=== PATIENT | male | born 1995 | race Caucasian/White ===

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

== ENCOUNTER 2018-02-01 13:15 | Emergency (ER) | payer MEDICAID ==
[~2018-02-01] VITALS: Ht 177.8 cm; Wt 81.6 kg
[~2018-02-01 13:15] MED LIST: HYDR-1189
[2018-02-01 13:27] VITALS: BP_SYST 125
[2018-02-01] MEDS ORDERED: DIPHENOXYLATE HCL/ATROP SULF 2.5 MG TAB PO ONE (13:45)
[2018-02-01] MEDS ORDERED: KETOROLAC TROMETHAMINE 15 MG VIAL IVP ONE (13:45)
[2018-02-01] MEDS ORDERED: NACL 0.9% 1,000 ML IV ONE (13:45)
[2018-02-01 14:24] LABS: ALBUMIN 3.3 g/dL (3.4-4.8); CALCIUM 8.9 mg/dL (8.4-11.0); CREATININE 1.1 mg/dL (0.55-1.30); POTASSIUM 3.4 mmol/L (3.5-5.1); TOTAL BILIRUBIN 0.6 mg/dL (0.0-1.0)
[2018-02-01 15:24] LABS: HEMATOCRIT 46.2 % (36-54); HEMOGLOBIN 15.7 g/dL (14.0-18.0); MEAN CORPUSCULAR HEMOGLOBIN 30 pg (27-31); MEAN CORPUSCULAR HGB CONC 34 % (32-36); MEAN CORPUSCULAR VOLUME 87 fL (79.0-98.0); PLATELET COUNT (AUTO) 312 K/uL (130-430); WHITE BLOOD COUNT (AUTO) 9.9 K/uL (4.5-11.0)
[2018-02-01 16:15] VITALS: BP_SYST 128
[2018-02-01 16:54] LABS: BAND % (MANUAL) 30 % (0-6); BASOPHILS % (MANUAL) 0 % (0-2); EOSINOPHILS % (MANUAL) 1 % (0-7); LYMPHOCYTES % (MANUAL) 7 % (20-46); MONOCYTES % (MANUAL) 30 % (0-11)
== END 2018-02-01 16:16 | disposition home or self-care (01) ==
LOC: SED 13:15
DX: R10.84 Generalized abdominal pain (principal); R19.7 Diarrhea, unspecified; R11.2 Nausea with vomiting, unspecified
CPT/HCPCS: 36415; 80053; 83690; 85007; 85027; 87230; 89055; 96361; 96374; 99284; J1885; J7030

== ENCOUNTER 2018-02-05 07:48 | Inpatient (IN) | payer MEDICAID ==
[~2018-02-05] VITALS: Ht 177.8 cm; Wt 81.6 kg
[2018-02-05 07:55] VITALS: BP_SYST 133
--- NOTE | 2018-02-05 07:59 | NUR ---
Patient to ER bed 7 to gown for evaluation.
--- NOTE | 2018-02-05 08:02 | NUR ---
pt presented to the ED with Mom and Dad for N/V/D x 1 week. Pt has been vomiting bile color fluid. Pt was seen here last Thursday for the same symptoms. Pt has been having these symptoms intermittently for the past 3 years. Pt denies knowing the cause of symptoms.
--- NOTE | 2018-02-05 08:05 | NUR ---
ER Dr. Adorno at bedside examining patient.
[2018-02-05] MEDS ORDERED: ONDANSETRON HCL 4 MG/2 ML VIAL IVP ONE (08:15)
[2018-02-05] MEDS ORDERED: MORPHINE 4 MG/ML INJ. SYRINGE IVP ONE (08:15)
[2018-02-05] MEDS ORDERED: NACL 0.9% 1,000 ML IV ONE (08:15)
--- NOTE | 2018-02-05 08:31 | NUR ---
Patient transported to radiology via wheelchair, accompanied by tech.
--- NOTE | 2018-02-05 08:39 | NUR ---
Patient transported back to unit from radiology via wheelchair , accompanied by tech.
[2018-02-05 08:54] LABS: HEMATOCRIT 48.5 % (36-54); HEMOGLOBIN 16.5 g/dL (14.0-18.0); MEAN CORPUSCULAR HEMOGLOBIN 30 pg (27-31); MEAN CORPUSCULAR HGB CONC 34 % (32-36); MEAN CORPUSCULAR VOLUME 87 fL (79.0-98.0); PLATELET COUNT (AUTO) 360 K/uL (130-430); RED BLOOD CELL COUNT(AUTO) 5.58 MIL/uL (4.2-6.2); RED CELL DISTRIBUTION WIDTH 11.5 % (9.0-15.0)
[2018-02-05 08:57] LABS: WHITE BLOOD COUNT (AUTO) 10.9 K/uL (4.5-11.0)
[2018-02-05 09:08] LABS: CALCIUM 8.9 mg/dL (8.4-11.0); CREATININE 1.1 mg/dL (0.55-1.30); POTASSIUM 3.7 mmol/L (3.5-5.1)
[2018-02-05 09:12] LABS: INR 1.2 (0.80-1.20); PROTHROMBIN TIME 11.9 SECS (9.5-12.5)
[2018-02-05 09:14] LABS: ALBUMIN 2.8 g/dL (3.4-4.8); TOTAL BILIRUBIN 0.5 mg/dL (0.0-1.0)
[2018-02-05 09:58] LABS: ATYPICAL LYMPHOCYTES % 0 % (0-0); BAND % (MANUAL) 18 % (0-6); BASOPHILS % (MANUAL) 0 % (0-2); EOSINOPHILS % (MANUAL) 4 % (0-7); LYMPHOCYTES % (MANUAL) 14 % (20-46); MONOCYTES % (MANUAL) 20 % (0-11)
[2018-02-05] MEDS ORDERED: PRO40 PO (10:05)
[2018-02-05] MEDS ORDERED: METR500T PO (10:05)
[2018-02-05] MEDS ORDERED: TRAM50TA92 PO (10:05)
[2018-02-05] MEDS ORDERED: DIPH-179 PO (10:05)
[2018-02-05] MEDS ORDERED: ONDA4TAB5 PO (10:05)
--- NOTE | 2018-02-05 10:05 | NUR ---
Medication reconciliation completed with information provided by RX bottles. Any prior medication reconciliation on file was reviewed and corrected. Mother will take RX bottles home. Verbalized understanding.
[2018-02-05] MEDS ORDERED: NS 500 ML IV ONE (10:45)
--- NOTE | 2018-02-05 11:11 | NUR ---
Patient will be admitted to [facility] . Admitted to Med-Surg unit. Will go to room 130-A. Belongings list completed. Summary report printed. Report will be given at bedside. Transfer to [facility]. IV present no sign or symptom of infiltration.
--- NOTE | 2018-02-05 11:19 | NUR ---
Admission: Received from ER on a gurney with the diagnosis of intractable nausea and vomiting. Denies vomiting and pain at this time. Patient is familiar with the hospital and room set up. Patient has been here a year ago. Oriented patient to room routine.
--- NOTE | 2018-02-05 11:25 | NUR ---
CONSULTATION CALLED REASON FOR CONSULTATION:NAUSEA/VOMITING WAS CONSULT CALLED?Y PERSON WHO WAS NOTIFIED:ANA CONSULTING PHYSICIAN:SJ CERVANTES SENIOR ASIC ENGINEER SPECIALTY:GI SENIOR ASIC ENGINEER PHONE NUMBER:[phone] ORDERING PHYSICIAN:OREN PERKINS
--- NOTE | 2018-02-05 11:30 | NUR ---
Initial Note Received report from the admission nurse Susan. Pt AOX4. No sign of distress noted at this time. Bed is at lowest position with bed alarm on. Call light within reach
[2018-02-05 11:32] VITALS: BP_SYST 116
[2018-02-05 12:00] VITALS: BP_SYST 114
[2018-02-05] MEDS: POTASSIUM CHLORIDE 10 MEQ in NACL 0.9% 1,000 ML IV SCH ×2 (12:51→21:22)
--- NOTE | 2018-02-05 13:20 | NUR ---
RN Rounds Pt resting and does not show any sign of distress noted at this time. Bed is at lowest position with bed alarm on. Call light within reach
--- NOTE | 2018-02-05 15:15 | NUR ---
RN Rounds Pt resting and does not show any sign of distress noted at this time. Bed is at lowest position with bed alarm on. Call light within reach.
[2018-02-05 16:00] VITALS: BP_SYST 118
[2018-02-05] MEDS: ONDANSETRON HCL 4 MG/2 ML VIAL IVP PRN (16:50)
--- NOTE | 2018-02-05 17:20 | NUR ---
RN Rounds Pt resting and does not show any sign of distress at this time. Bed is at lowest position with bed alarm on. Call light within reach. Family members at bedside.
--- NOTE | 2018-02-05 18:17 | NUR ---
Closing Note Pt AOX4. No sign of distress noted at this time. Bed is at lowest position with bed alarm on. Call light within reach. Family members at bedside. Pt still have N/V. Pt tried to have a BM, but there was some blood on the toilet cup. Dr. Viera was in the room at that time and he saw the blood. There is a need for Urine sample and stool sample at this time.
[2018-02-05 18:55] LABS: BLOOD, URINE NEGATIVE (NEGATIVE); CLARITY/URINE CLEAR (CLEAR); GLUCOSE,URINE NEGATIVE (NEGATIVE); KETONES,URINE 3+ (NEGATIVE); LEUKOCYTE ESTERASE ,URINE NEGATIVE (NEGATIVE); NITRITE, URINE NEGATIVE (NEGATIVE); PH,URINE 6.5 (5.0-8.0); PROTEIN URINE 1+ (NEGATIVE); UROBILINOGEN,URINE 0.2 (0.2-1.0)
[2018-02-05 19:08] LABS: BILIRUBIN,URINE NEGATIVE (NEGATIVE); COLOR,URINE AMBER (YELLOW)
[2018-02-05 19:09] LABS: BACTERIA,URINE FEW /HPF (None Seen); MUCUS,URINE 1+ /LPF (None Seen); RBC,URINE NONE SEEN /HPF (0-3); WBC,URINE 0-3 /HPF (0-3)
--- NOTE | 2018-02-05 19:25 | NUR ---
Opening Notes Received patient in bed resting comfortably with family at the bedside. Patient is AAOx4 and able to verbalize his needs. Lungs and heart sound WNL with no respiratory distress. Patient has abdominal pain at 8/10. Will contact the dr for pain management. IV on the Left forearm 20 gauge clean dry and intact with no infiltration or signs of infection. Oriented the patient to the room and use of the call light. Bed in low position and patient refused bed alarm. Informed of risks and benefits and patient acknowledges them. Call light placed within reach and will cont to monitor on rounds.
[2018-02-05 20:00] VITALS: BP_SYST 129
--- NOTE | 2018-02-05 20:35 | NUR ---
PAGE CALLED FOR DR. FRIEDMAN. SPOKE TO DENIS, DIALED [phone].
[2018-02-05 20:46] LABS: BARBITURATE, URINE NEGATIVE (NEG <=200); BENZODIAZEPINE, URINE NEGATIVE (NEG <=150); CANNABINOID, URINE POSITIVE (NEG <=50); COCAINE, URINE NEGATIVE (NEG <=150); METHAMPHETAMINES SCREEN,URINE NEGATIVE (NEG <=500); OPIATE, URINE POSITIVE (NEG <=100); PHENCYCLIDINE SCREEN,URINE NEGATIVE (NEG <=25); UR TRICYCLIC ANTIDEPRESSANTS NEGATIVE (NEG <=300); URINE AMPHETAMINE NEGATIVE (NEG <=500); URINE METHADONE NEGATIVE (NEG <=200); URINE OXYCODONE SCREEN NEGATIVE (NEG <=100); URINE PROPOXYPHENE SCREEN NEGATIVE (NEG <=300)
[2018-02-05] MEDS ORDERED: PANTOPRAZOLE SODIUM 40 MG/VIAL (PROTONIX) IVP SCH (21:00)
--- NOTE | 2018-02-05 21:02 | NUR ---
Received Call from Dr Viera. new order Morphine 4mg IVP Q4 PRN (7-10) and Morphine 2mg IVP Q4 PRN (4-6).
[2018-02-05] MEDS: MORPHINE 4 MG/ML INJ. SYRINGE IVP PRN (21:25)
--- NOTE | 2018-02-05 22:10 | NUR ---
Medicated the patient with Morphine and tolerated well. No pain at this time and no respiratory distress. call light placed within reach and will continue to monitor for any change of condition.
--- NOTE | 2018-02-06 00:16 | NUR ---
Patient ambulated to the bathroom with a steady gait. Mother is at the bedside asking about nausea medication. Informed her that medication is every 6 hours as needed and will be okay to give at 0050. Patient states no pain at this time and will monitor for any changes.
[2018-02-06] MEDS: ONDANSETRON HCL 4 MG/2 ML VIAL IVP PRN ×2 (00:46→20:26)
[2018-02-06 01:00] VITALS: BP_SYST 130
--- NOTE | 2018-02-06 02:11 | NUR ---
Patient in bed asleep. Mother is at the bedside. Medicated with Zofran for nausea and tolerated well. No appearance of pain or sob at this time. Will cont rounds and monitor.
[2018-02-06] MEDS: MORPHINE 4 MG/ML INJ. SYRINGE IVP PRN ×5 (03:26→21:42)
--- NOTE | 2018-02-06 04:22 | NUR ---
Patient asleep, no change of condition.
--- NOTE | 2018-02-06 06:51 | NUR ---
Closing Notes Patient asleep with mother at bedside. no pain or respiratory distress. Mother states son is doing better last night than previously. All needs have been met and will endorse to the day shift nurse. Bed alarm inactive as patient refused. Call light within reach.
[2018-02-06 07:47] LABS: BASOPHILS % (AUTO) 0.2 % (0.0-2.0); EOSINOPHILS # (AUTO) 0.3 K/uL (0.0-0.4); EOSINOPHILS % (AUTO) 2.7 % (0.0-4.0); HEMATOCRIT 39.5 % (36-54); HEMOGLOBIN 13.2 g/dL (14.0-18.0); LYMPHOCYTES # (AUTO) 0.8 K/uL (1.0-5.5); LYMPHOCYTES % (AUTO) 8.2 % (20.5-51.5); MEAN CORPUSCULAR HEMOGLOBIN 29 pg (27-31); MEAN CORPUSCULAR HGB CONC 34 % (32-36); MEAN CORPUSCULAR VOLUME 87 fL (79.0-98.0); MONOCYTES # (AUTO) 1.7 K/uL (0.0-1.0); MONOCYTES % (AUTO) 17.1 % (1.7-9.3); NEUTROPHILS # (AUTO) 7.4 K/uL (1.8-7.7); NEUTROPHILS % (AUTO) 71.8 % (40.0-70.0); PLATELET COUNT (AUTO) 357 K/uL (130-430); RED BLOOD CELL COUNT(AUTO) 4.52 MIL/uL (4.2-6.2); RED CELL DISTRIBUTION WIDTH 11.4 % (9.0-15.0); WHITE BLOOD COUNT (AUTO) 10.2 K/uL (4.5-11.0)
[2018-02-06 08:00] VITALS: BP_SYST 130
--- NOTE | 2018-02-06 08:00 | NUR ---
patient is A/Ox4 and able to verbalize his needs. C/O abdominal pain at this time. Patient has abdominal pain at 8/10. IV on the left AC, #20, intact and patent. Will give pain meds. POC is explained to family. Call light in place, bed locked at the lowest position, will continue to monitor.
[2018-02-06] MEDS: LACTOBACILLUS RHAMNOSUS GG 1 CAP CAPSULE PO SCH ×2 (08:03→20:26)
[2018-02-06] MEDS: POTASSIUM CHLORIDE 10 MEQ in NACL 0.9% 1,000 ML IV SCH ×2 (08:04→16:51)
[2018-02-06 08:14] LABS: CREATININE 0.96 mg/dL (0.55-1.30); POTASSIUM 3.5 mmol/L (3.5-5.1)
[2018-02-06 08:43] LABS: C-REACTIVE PROTEIN QUANT 17.1 mg/dL (0-0.5)
[2018-02-06] MEDS ORDERED: SACCHAROMYCES BOULARDII 250 MG CAPSULE (FLORASTOR) PO SCH (09:00)
[2018-02-06 09:05] LABS: ERYTHROCYTE SEDIMENTATION RATE 40 MM/HR (0-15)
--- NOTE | 2018-02-06 10:10 | NUR ---
patient is resting, no signs of distress noted.
[2018-02-06 12:00] VITALS: BP_SYST 134
--- NOTE | 2018-02-06 12:20 | NUR ---
Patient is in pain, and had a liquid bowel movement. Sample collected for labs
--- NOTE | 2018-02-06 14:00 | NUR ---
Patient is resting comfortably in bed at this time, and states the pain is under control
--- NOTE | 2018-02-06 15:16 | NUR ---
Dietitian Recommendations *Recommend continuing clear liquid diet per MD orders. *Advance diet when medically appropriate. (Low residue diet) Please see Nutritional Assessment for details. JOCELYNN, RD
[2018-02-06 16:00] VITALS: BP_SYST 130
--- NOTE | 2018-02-06 17:05 | NUR ---
Patient requests for morphine 4mg IVP due to pain. IVP morphine 4mg is given, will reassess.
--- NOTE | 2018-02-06 18:16 | NUR ---
Patient is resting at this time. No signs of distress noted.
--- NOTE | 2018-02-06 20:42 | NUR ---
Patient REFUSE BED ALARM safety measures explained .
--- NOTE | 2018-02-06 20:43 | NUR ---
ZOFRAN 4 MG IVP administer for GENERAL NAUSEA , CONTINUE TO MONITOR .
[2018-02-06 20:44] VITALS: BP_SYST 131
--- NOTE | 2018-02-06 20:47 | NUR ---
PATIENT REFUSE BED ALARM
[2018-02-07 00:28] VITALS: BP_SYST 115
[2018-02-07] MEDS: MORPHINE 4 MG/ML INJ. SYRINGE IVP PRN ×4 (01:52→20:49)
--- NOTE | 2018-02-07 02:17 | NUR ---
Patient awake assist out of bed to rest room ambulates , on room air 02 SAT 96 % steady gait family @ the bedside .
--- NOTE | 2018-02-07 02:18 | NUR ---
MORPHINE SULFATE 4 MG IVP ADMINISTER FOR GENERAL PAIN 01/19 & HELPFUL , VERBALIZE VIA PATIENT 08/22 .
[2018-02-07] MEDS: POTASSIUM CHLORIDE 10 MEQ in NACL 0.9% 1,000 ML IV SCH ×3 (04:38→22:55)
--- NOTE | 2018-02-07 04:44 | NUR ---
Patient resting verbally Responsive , on room air 02 SAT 97 % skin dry warm Respirations Regular also unlabored Family is @ the bedside .
[2018-02-07 07:32] LABS: BASOPHILS % (AUTO) 0.4 % (0.0-2.0); EOSINOPHILS # (AUTO) 0.2 K/uL (0.0-0.4); EOSINOPHILS % (AUTO) 1.9 % (0.0-4.0); HEMATOCRIT 40.6 % (36-54); HEMOGLOBIN 13.6 g/dL (14.0-18.0); LYMPHOCYTES % (AUTO) 10.3 % (20.5-51.5); MEAN CORPUSCULAR HEMOGLOBIN 30 pg (27-31); MEAN CORPUSCULAR HGB CONC 34 % (32-36); MEAN CORPUSCULAR VOLUME 88 fL (79.0-98.0); MONOCYTES # (AUTO) 1.7 K/uL (0.0-1.0); NEUTROPHILS # (AUTO) 6.8 K/uL (1.8-7.7); NEUTROPHILS % (AUTO) 69.4 % (40.0-70.0); PLATELET COUNT (AUTO) 363 K/uL (130-430); RED BLOOD CELL COUNT(AUTO) 4.61 MIL/uL (4.2-6.2); RED CELL DISTRIBUTION WIDTH 11.8 % (9.0-15.0); WHITE BLOOD COUNT (AUTO) 9.7 K/uL (4.5-11.0)
[2018-02-07 07:55] LABS: CALCIUM 7.9 mg/dL (8.4-11.0); CREATININE 0.94 mg/dL (0.55-1.30); POTASSIUM 3.7 mmol/L (3.5-5.1)
[2018-02-07 08:00] VITALS: BP_SYST 115
--- NOTE | 2018-02-07 08:00 | NUR ---
A/OX4, and able to verbalize his needs. C/O abdominal pain at this time. Patient has abdominal pain at 7/10. IV on the left AC, #20, intact and patent. Will give pain meds. POC is explained to family. Call light in place, bed locked at the lowest position, will continue to monitor.
[2018-02-07 08:07] LABS: C-REACTIVE PROTEIN QUANT 13.9 mg/dL (0-0.5)
[2018-02-07 08:21] LABS: ERYTHROCYTE SEDIMENTATION RATE 41 MM/HR (0-15)
[2018-02-07] MEDS: LACTOBACILLUS RHAMNOSUS GG 1 CAP CAPSULE PO SCH ×2 (09:13→20:51)
--- NOTE | 2018-02-07 09:41 | NUR ---
PATIENT'S MOTHER AT BEDSIDE. POC IS EXPLAINED TO HER; SHE VERBALIZED UNDERSTANDING.
[2018-02-07 12:00] VITALS: BP_SYST 124
--- NOTE | 2018-02-07 12:05 | NUR ---
PATIENT IS C/O PAIN OF AT . WILL GIVE MORPHINE 2MG FOR THE PAIN
[2018-02-07] MEDS: MORPHINE 2 MG/ML INJ. SYRINGE IVP PRN ×2 (12:21→17:40)
--- NOTE | 2018-02-07 13:57 | NUR ---
PATIENT IS RESTING AT THIS TIME. NO SIGNS OF DISTRESS NOTED.
[2018-02-07] MEDS: ONDANSETRON HCL 4 MG/2 ML VIAL IVP PRN ×2 (14:12→20:48)
--- NOTE | 2018-02-07 15:41 | NUR ---
PATIENT C/O ABDOMINAL PAIN. MORPHINE 4MG IS GIVEN.
[2018-02-07 16:00] VITALS: BP_SYST 112
--- NOTE | 2018-02-07 17:45 | NUR ---
PATIENT IS C/O ABDOMINAL PAIN OF 6/10 AT THIS TIME. 2MG OF MORPHINE IS GIVEN.
[2018-02-07] MEDS ORDERED: GOLYTELY / COLYTE SOLUTION 4 LITERS PO ONE (18:00)
--- NOTE | 2018-02-07 18:45 | NUR ---
PATIENT IS ENCOURAGED TO DRINK MUCH GOLYTELY HE CAN TOLERATE. PROCEDURE OF COLONOSCOPY IS REVIEWED.
--- NOTE | 2018-02-07 19:35 | NUR ---
Opening Notes Received patient in bed resting comfortably. Family at bedside. Patient is aaox4 and able to verbalize needs. Complaints on constant abdominal pain and requesting pain medication when available. Informed patient of scheduled administration times. and educated on the indication and side effects of Morphine and Zofran. Patient and family acknowledges teaching. IV on the left forearm infusing KCL 10meq patent with no s/s of infection or infiltration. Heart and lung sounds wnl. Patient is able to ambulate with assistance from family. Bed alarm refused. Teaching of risk and benefits of the bed alarm acknowledged. Safety precautions are in place and will observe on rounds. Bed in low position and call light within reach.
[2018-02-07 20:00] VITALS: BP_SYST 120
--- NOTE | 2018-02-07 22:00 | NUR ---
Medication administered and tolerated. patient is aware of NPO status after midnight and morning procedure. Consent has been signed. Patient resting comfortably with no respiratory distress. Call light within reach.
[2018-02-07] MEDS: TEMAZEPAM 15 MG CAPSULE PO PRN (22:54)
[2018-02-08] VITALS: BP_SYST 126
--- NOTE | 2018-02-08 00:45 | NUR ---
Patient asleep in bed. Pain of 10/10 at the abdomen. Call light within reach and family at the bedside.
[2018-02-08] MEDS: MORPHINE 4 MG/ML INJ. SYRINGE IVP PRN ×5 (01:05→22:05)
--- NOTE | 2018-02-08 02:10 | NUR ---
Patient in bed resting comfortably. Parents in the room at bedside asleep as well. No pain or respiratory distress. Call light within reach.
--- NOTE | 2018-02-08 04:30 | NUR ---
Tap Water Enema competed. Patient is clear and prepped for Colonoscopy procedure in the AM. Patient ambulated with a steady gait. Pain is tolerable. Call light within reach and safety precautions in place.
--- NOTE | 2018-02-08 06:35 | NUR ---
Closing Notes Patient in bed resting. Family at the bedside. Administered morphine for pain of 10/10 on the abdomen. IV fluids infusing with no s/s of distress. Awaiting colonoscopy procedure in the AM. All needs have been met and will endorse to the oncoming nurse. Safety precautions being observed and call light within reach.
[2018-02-08 06:50] LABS: CALCIUM 7.8 mg/dL (8.4-11.0); CREATININE 0.93 mg/dL (0.55-1.30); POTASSIUM 3.4 mmol/L (3.5-5.1)
[2018-02-08 07:08] LABS: HEMOGLOBIN 13.6 g/dL (14.0-18.0)
--- NOTE | 2018-02-08 07:30 | NUR ---
OPENING NOTE: MORNING REPORT WAS TAKEN FROM SENIOR SAFETY SUPPORT MANAGER NURSE. PATIENT IS AWAY AT GI LAB AT MOMENT.
[2018-02-08] MEDS ORDERED: fentaNYL CITRATE/PF 100 MCG/2 ML AMP ONE (07:41)
[2018-02-08] MEDS ORDERED: SIMETHICONE 40 MG/0.6 ML ML ONE (07:41)
[2018-02-08] MEDS: MIDAZOLAM HCL 5 MG/5 ML VIAL ONE ×3 (07:45→07:56)
[2018-02-08] MEDS: MEPERIDINE HCL/PF 100 MG/ML AMP ONE ×2 (07:45→07:48)
[2018-02-08 07:52] LABS: HEMATOCRIT 40.9 % (36-54); MEAN CORPUSCULAR HEMOGLOBIN 29 pg (27-31); MEAN CORPUSCULAR HGB CONC 33 % (32-36); MEAN CORPUSCULAR VOLUME 88 fL (79.0-98.0); PLATELET COUNT (AUTO) 380 K/uL (130-430); RED BLOOD CELL COUNT(AUTO) 4.67 MIL/uL (4.2-6.2); RED CELL DISTRIBUTION WIDTH 11.6 % (9.0-15.0); WHITE BLOOD COUNT (AUTO) 11.4 K/uL (4.5-11.0)
[2018-02-08 09:00] VITALS: BP_SYST 129
--- NOTE | 2018-02-08 09:45 | NUR ---
NOTE: PATIENT BACK FROM GI LAB. VITALS AND ASSESSMENT WAS DONE. PATIENT ALERT AND ORIENTED. PATIENT NOT COMPLAINING OF NAUSEA OR VOMITING. PATIENT NOT COMPLAINING OF SHORTNESS OF BREATH. PATIENT ON ROOM AIR. PATIENT SAID HIS PAIN IS OKAY. FAMILY AT BEDSIDE. EDUCATED PATIENT ON IMPORTANCE OF BED ALARM BUT REFUSED TO HAVE IT ON. PATIENT GOING TO SLEEP. WILL CONTINUE TO MONITOR.
[2018-02-08] MEDS: LACTOBACILLUS RHAMNOSUS GG 1 CAP CAPSULE PO SCH ×2 (10:41→20:16)
[2018-02-08] MEDS: VANCOMYCIN HCL 250 MG CAPSULE PO SCH ×4 (10:41→20:16)
[2018-02-08] MEDS: POTASSIUM CHLORIDE 10 MEQ in NACL 0.9% 1,000 ML IV SCH ×2 (10:44→20:16)
--- NOTE | 2018-02-08 10:44 | NUR ---
NOTE: PATIENT ON CLEAR LIQUID DIET PER DR. LOPEZ'S NOTES. GAVE PATIENT WATER. GAVE PATIENT MORNING MEDICATION. GAVE PATIENT MORE FLUIDS. PATIENT RESTING IN BED. ASKED PATIENT HOW PAIN WAS AND HE SAID ITS OKAY AND HE DOESNT WANT ANY THING AT MOMENT. FAMILY AT BEDSIDE. WILL CONTINUE TO MONITOR.
[2018-02-08 11:14] VITALS: BP_SYST 126
[2018-02-08 12:08] LABS: BAND % (MANUAL) 14 % (0-6)
[2018-02-08 12:09] LABS: BASOPHILS % (MANUAL) 0 % (0-2); EOSINOPHILS % (MANUAL) 1 % (0-7); LYMPHOCYTES % (MANUAL) 4 % (20-46); MONOCYTES % (MANUAL) 28 % (0-11)
--- NOTE | 2018-02-08 12:35 | NUR ---
NOTE: PATIENT WAS COMPLAINING OF ABDOMINAL PAIN. GAVE PATIENT PAIN MEDICATION. IF FLUIDS ARE INFUSING. CALL LIGHT IS IN REACH. WILL CONTINUE TO MONITOR.
--- NOTE | 2018-02-08 14:26 | NUR ---
NOTE: CHECKED ON PATIENT BECAUSE PRESS FEEDER SAID TEMP ELEVATED. UNCOVERED PATIENT AND PUT ICE PACKS ON UNDER ARMS AND FAN ON PATIENT. RECHECKED TEMP AND IS 97.7 NOW. PATIENT NOT COMPLAINING OF ANY DISTRESS. WILL CONTINUE TO MONITOR.
--- NOTE | 2018-02-08 14:49 | NUR ---
CONSULT ID C-DIFF DR GONZALEZ [phone] S/W [facility] OFFICE
[2018-02-08 15:19] VITALS: BP_SYST 117
--- NOTE | 2018-02-08 16:58 | NUR ---
NOTE: GAVE PATIENT ANTIBIOTIC. PATIENT SAID HIS PAIN IS GOOD AT MOMENT. PATIENT DOESNT WANT ANYTHING FOR PAIN. WILL CONTINUE TO MONITOR. VISITORS AT BEDSIDE.
[2018-02-08] MEDS: ONDANSETRON HCL 4 MG/2 ML VIAL IVP PRN ×2 (17:46→22:03)
--- NOTE | 2018-02-08 18:00 | NUR ---
CLOSING NOTE: PATIENT WAS GAGGING AND FEELING NAUSEAS. GAVE PATIENT ZOFRAN. PATIENT WAS ALSO COMPLAINING OF PAIN. GAVE PATIENT PAIN MEDICATION. FAMILY AT BEDSIDE. FLUIDS ARE INFUSING. PATIENT NOT COMPLAINING OF SHORTNESS OF BREATH. BED ALARM IS ON AND CALL LIGHT IS IN REACH. PATIENT REFUSED BED ALARM THOUGHT OUT SHIFT. WILL CONTINUE TO MONITOR AND GIVE REPORT TO STUDENT LOAN COUNSELOR NURSE.
--- NOTE | 2018-02-08 19:35 | NUR ---
INITIAL NOTES RECEIVED PATIENT ON BED AWAKE AND RESTING, WATCHING TV WITH FAMILY ON THE BEDSIDE, BREATHING EVEN AND UNLABORED, NO SOB NOTED, MAINTAINED POSITION OF COMFORT, FALL AND SAFETY PRECAUTIONS IN PLACE, GIVEN EDUCATION. ENCOURAGED DEEP BREATHING AND RELAXATION, EXPLAINED THE PLAN OF CARE AND VERBALIZED UNDERSTANDING, WITH IV ON THE LAC 20 G INFUSING WELL, WILL CONTINUE TO MONITOR PATIENT CALL LIGHT WITHIN REACH.
[2018-02-08 20:00] VITALS: BP_SYST 115
--- NOTE | 2018-02-08 20:16 | NUR ---
BED ALARM PATIENT REFUSED BED ALARM, GIVEN EDUCATION TO PATIENT AND FAMILY ON THE IMPORTANCE OF BED ALARM, PATIENT CONTINUOUSLY REFUSES, AND MOTHER STATED THAT SHE WILL HELP HIS SON TO AMBULATE INSTEAD. WILL CONTINUE TO MONITOR.
--- NOTE | 2018-02-08 23:05 | NUR ---
RN ROUNDS PATIENT ON BED SLEEPING AND RESTING, PATIENT WAS ABLE TO VOID WITHOUT DIFFICULTY, NO NAUSEA AND VOMITING NOTED, WILL CONTINUE TO MONITOR PATIENT
--- NOTE | 2018-02-08 23:14 | NUR ---
INITIAL NOTES RECEIVED PATIENT ON BED AWAKE AND RESTING, WATCHING TV WITH FAMILY ON THE BEDSIDE, BREATHING EVEN AND UNLABORED, NO SOB NOTED, MAINTAINED POSITION OF COMFORT, FALL AND SAFETY PRECAUTIONS IN PLACE, GIVEN EDUCATION. ENCOURAGED DEEP BREATHING AND RELAXATION, EXPLAINED THE PLAN OF CARE AND VERBALIZED UNDERSTANDING, WITH IV ON THE LAC 20 G INFUSING WELL, WILL CONTINUE TO MONITOR PATIENT CALL LIGHT WITHIN REACH. Addendum: 02/08/18 at 2321 by Jailyn Carmona RN WRONG CHART
--- NOTE | 2018-02-08 23:45 | NUR ---
STOOL SAMPLE PER LAB, TALKED TO JD, THAT WE NEED TO COLLECT ANOTHER STOOL SAMPLE FOR THE TEST FOR AMOEBIASIS, BECAUSE THE PREVIOUS SAMPLE WAS SUPPOSED TO BE FROZEN AND NOT REFRIGERATED, FAMILY AND PATIENT AWARE.
--- NOTE | 2018-02-09 00:03 | NUR ---
RN ROUNDS PATIENT ON BED SLEEPING AND RESTING, NO SOB NOTED, SAFETY MAINTAINED ON STABLE CONDITION CALL LIGHT WITHIN REACH
--- NOTE | 2018-02-09 00:32 | NUR ---
VS PATIENT REFUSED VS FOR 0000 PER HOSPITAL ACCOUNT MANAGER, EDUCATION GIVEN, PATIENT WANTED TO REST PER MOTHER.
--- NOTE | 2018-02-09 02:11 | NUR ---
RN ROUNDS PATIENT SLEEPING AND RESTING, BREATHING EVEN UNLABORED, ON STABLE CONDITION, SAFETY AND FALL PRECAUTIONS IN PLACE, WILL CONTINUE TO MONITOR CALL LIGHT WITHIN REACH
[2018-02-09] MEDS: MORPHINE 4 MG/ML INJ. SYRINGE IVP PRN ×4 (02:15→18:38)
--- NOTE | 2018-02-09 04:04 | NUR ---
RN ROUNDS PATIENT SLEEPING AND RESTING, BREATHING EVEN UNLABORED, NO PAIN NOTED, NO NAUSEA AND VOMITING NOTED ON STABLE CONDITION, SAFETY AND FALL PRECAUTIONS IN PLACE, WILL CONTINUE TO MONITOR CALL LIGHT WITHIN REACH
[2018-02-09] MEDS: POTASSIUM CHLORIDE 10 MEQ in NACL 0.9% 1,000 ML IV SCH ×2 (06:05→17:18)
[2018-02-09 06:06] LABS: CALCIUM 7.7 mg/dL (8.4-11.0); CREATININE 0.83 mg/dL (0.55-1.30); POTASSIUM 3.3 mmol/L (3.5-5.1)
[2018-02-09] MEDS: ONDANSETRON HCL 4 MG/2 ML VIAL IVP PRN ×3 (06:30→20:47)
[2018-02-09 06:36] LABS: HEMATOCRIT 34.4 % (36-54); HEMOGLOBIN 12.6 g/dL (14.0-18.0); MEAN CORPUSCULAR HEMOGLOBIN 29 pg (27-31); MEAN CORPUSCULAR VOLUME 87 fL (79.0-98.0); RED BLOOD CELL COUNT(AUTO) 4.29 MIL/uL (4.2-6.2); WHITE BLOOD COUNT (AUTO) 10.9 K/uL (4.5-11.0)
[2018-02-09 06:37] LABS: EOSINOPHILS % (AUTO) 2.8 % (0.0-4.0); LYMPHOCYTES % (AUTO) 7.3 % (20.5-51.5); MEAN CORPUSCULAR HGB CONC 34 % (32-36); MONOCYTES % (AUTO) 14.2 % (1.7-9.3); NEUTROPHILS % (AUTO) 75.5 % (40.0-70.0); PLATELET COUNT (AUTO) 382 K/uL (130-430); RED CELL DISTRIBUTION WIDTH 11.6 % (9.0-15.0)
[2018-02-09 06:38] LABS: BASOPHILS % (AUTO) 0.2 % (0.0-2.0); EOSINOPHILS # (AUTO) 0.3 K/uL (0.0-0.4); LYMPHOCYTES # (AUTO) 0.8 K/uL (1.0-5.5); MONOCYTES # (AUTO) 1.5 K/uL (0.0-1.0); NEUTROPHILS # (AUTO) 8.3 K/uL (1.8-7.7)
--- NOTE | 2018-02-09 06:54 | NUR ---
CLOSING NOTES PATIENT ON BED AWAKE AND RESTING WITH FAMILY ON THE BEDSIDE, BREATHING EVEN AND UNLABORED, NO SOB NOTED, MAINTAINED POSITION OF COMFORT, SAFETY AND FALL PRECAUTIONS NOTED. EXPLAINED MEDICATIONS AND SIDE EFFECTS, STATED UNDERSTANDING ALL DUE MEDICATIONS GIVEN AND TOLERATED WELL, ALL NEEDS MET, KEPT PATIENT COMFORTABLE, WILL GIVE REPORT TO AM NURSE WILL CONTINUE TO MONITOR CALL LIGHT WITHIN REACH.
[2018-02-09 08:40] VITALS: BP_SYST 122
--- NOTE | 2018-02-09 08:40 | NUR ---
OPENING NOTE LATE ENTRY DUE TO PT CARE: REPORT IS RECEIVED FROM ANALYTICAL DATA SCIENTIST NURSE AND CARE IS ENDORSED TO MYSELF. PT IS RECEIVED AWAKE, ALERT, AND ORIENTED X4. PT IS ON CONTACT ISOLATION FOR C-DIFF PRECAUTIONS. WHITE BOARD IS UPDATED AND PLAN OF CARE IS DISCUSSED. CURRENT NEEDS ARE MET. BED IS AT LOWEST POSITION, CALL LIGHT WITHIN REACH, THREE SIDE RAILS UP, BED ALARM IS ON. WILL CONTINUE TO MONITOR.
[2018-02-09] MEDS: VANCOMYCIN HCL 250 MG CAPSULE PO SCH ×4 (09:47→20:47)
[2018-02-09] MEDS: LACTOBACILLUS RHAMNOSUS GG 1 CAP CAPSULE PO SCH ×2 (09:47→20:47)
--- NOTE | 2018-02-09 10:40 | NUR ---
ROUNDS LATE ENTRY DUE TO PT CARE: PT IS AWAKE AND ALERT. NO SIGNS OR SYMPTOMS OF DISTRESS OR SOB NOTED. PT IS COMPLAINING OF PAIN AND WAS GIVEN PRN MORPHINE AND ADVISED OF INCREASED RISK FOR FALLS AND THE NEED TO USE CALL LIGHT. PT VERBALIZED UNDERSTANDING. CURRENT NEEDS ARE MET. BED IS AT LOWEST POSITION, CALL LIGHT WITHIN REACH, THREE SIDE RAILS UP, BED ALARM IS ON. WILL CONTINUE TO MONITOR.
[2018-02-09 11:26] VITALS: BP_SYST 116
--- NOTE | 2018-02-09 12:40 | NUR ---
ROUNDS LATE ENTRY DUE TO PT CARE: PT IS SLEEPING. NO SIGNS OR SYMPTOMS OF DISTRESS OR SOB NOTED. CURRENT NEEDS ARE MET. BED IS AT LOWEST POSITION, CALL LIGHT WITHIN REACH, THREE SIDE RAILS UP, BED ALARM IS ON. WILL CONTINUE TO MONITOR.
--- NOTE | 2018-02-09 14:40 | NUR ---
ROUNDS LATE ENTRY DUE TO PT CARE: PT IS AWAKE AND ALERT. NO SIGNS OR SYMPTOMS OF DISTRESS OR SOB NOTED. PT IS INFILTRATED AND IV RELOCATED TO RIGHT HAND 22G. PT IS COMPLAINING OF PAIN AND PRN MORPHINE WAS GIVEN AND PT ADVISED OF INCREASED RISK FOR FALLS. PT VERBALIZED UNDERSTANDING. CURRENT NEEDS ARE MET. BED IS AT LOWEST POSITION, CALL LIGHT WITHIN REACH, THREE SIDE RAILS UP, BED ALARM IS ON. WILL CONTINUE TO MONITOR.
[2018-02-09] MEDS: MORPHINE 2 MG/ML INJ. SYRINGE IVP PRN (14:55)
[2018-02-09 15:14] VITALS: BP_SYST 110
--- NOTE | 2018-02-09 16:03 | NUR ---
ROUNDS PT IS SLEEPING. NO SIGNS OR SYMPTOMS OF DISTRESS OR SOB NOTED. CURRENT NEEDS ARE MET. BED IS AT LOWEST POSITION, CALL LIGHT WITHIN REACH, THREE SIDE RAILS UP, BED ALARM IS ON. WILL CONTINUE TO MONITOR.
[2018-02-09] MEDS ORDERED: methylPREDNISolone SOD SUCC/PF 62.5 MG/ML VIAL IVP ONE (18:22)
--- NOTE | 2018-02-09 18:45 | NUR ---
CLOSING NOTE PT IS AWAKE AND ALERT. NO SIGNS OR SYMPTOMS OF DISTRESS OR SOB NOTED. PT COMPLAINING OF PAIN OF 9 OUT OF 10 IN ABDOMINAL AREA. PRN MORPHINE GIVEN, PT ADVISED OF INCREASED RISK FOR FALLS AND THE NEED TO USE CALL LIGHT. PT VERBALIZED UNDERSTANDING. CURRENT NEEDS ARE MET. BED IS AT LOWEST POSITION, CALL LIGHT WITHIN REACH, THREE SIDE RAILS UP, BED ALARM IS ON. WILL CONTINUE TO MONITOR UNTIL CARE AND REPORT IS GIVEN TO PEDIATRIC SPEECH THERAPIST NURSE.
[2018-02-09 19:40] VITALS: BP_SYST 104
--- NOTE | 2018-02-09 19:50 | NUR ---
INITIAL NOTES: PATIENT IN BED AWAKE ,ORIENTED X4, PLAYING GAMES VIA CELL PHONES . FRIENDS , PARENTS SIBLINGS ARE AT BEDSIDE.HAS TOLERABLE ABDOMINAL PAIN. HAS SLIGHT NAUSEA. ZOFRAN NOT DUE YET.NO DIARRHEA THIS TIME. IVF INFUSING AT 1OOML/HR. CALL LIGHT WITHIN REACH. BED IN LOW POSITION. MOTHER SAID PATIENT IS PERSPIRING AND NEEDS TO BE CHANGE. TOLD HER POLICE SURGEON WILL DO SINCE ANOTHER PATIENT IS CALLING FOR PAIN MEDS.ROOM AIR. VITAL SIGNS TAKEN . NO FEVER. WILL MONITOR CLOSELY.
--- NOTE | 2018-02-09 20:50 | NUR ---
NAUSEA: ZOFRAN 4MG IV GIVEN. ASKED IF HAS PAIN ,MOTHER ANSWERED NO .
--- NOTE | 2018-02-09 21:40 | NUR ---
HYGIENE: MERLIN BLACKBURN CHANGED OWN WET CLOTHES FROM DIAPHORESIS LARGELY. PARENTS ARE ASKING WHY HE IS PERSPIRING A LOT, POSSIBLY FROM NEW MEDICINE GIVEN. SKIN WARM TO TOUCH. DENIES ABDOMINAL PAIN. MOTHER SAID NO MORPHINE IV SINCE NO PAIN.
[2018-02-09] MEDS: metroNIDAZOLE 250 mg/NS 50 ML IV SCH (22:39)
[2018-02-09] MEDS: TEMAZEPAM 15 MG CAPSULE PO PRN (22:40)
[2018-02-10] VITALS (7 sets, daily range): BP systolic 106–130
--- NOTE | 2018-02-10 00:30 | NUR ---
ROUNDS:PATIENT RESTING QUITELY WITH EYES CLOSE. NO DISTRESS.
--- NOTE | 2018-02-10 02:15 | NUR ---
DIAPHORESIS: MOTHER CALLED IV IS LEAKING.SEEN AND ASSESSED PATIENT. MODERATELY DIAPHORETIC. SKIN SLIGHT WARM TO TOUCH. AWAKE ,ALERT ,ORIENTED X4. IV NOT LEAKING. OWN CLOTHES CHANGED TO DRY NEW T SHIRT AND UNDERWEAR .DRESSING LOOSE DUE TO WET AREA. PATIENT AMBULATED WITH STEADY GAIT TO BATHROOM TO URINATE, WAITED TO COME OUT ,WHILE RN CHANGE LINENS. BACK TO BED WITHOUT DIZZINESS.VITAL SIGNS STABLE. IV DRESSINGS CHANGED ,IVF RESTARTED.WILL MONITOR CLOSELY.MOTHER ASKED TO CALL MD MIGHT BE A REACTION FROM STEROIDS GIVEN. EXPLAIN TO HER PATIENT IS NOT IN ANY DISTRESS , FEELS COLD ONLY.WILL KEEP HIM HYDRATED WITH PO AND IV FLUIDS AND KEEP HIM WARM. WILL INFORM MD IN AM.
--- NOTE | 2018-02-10 03:40 | NUR ---
MOTHER CAME OUT OF THE ROOM .INFORM RN PATIENT STILL SWEATING BUT NOT MUCH,FEELS COLD ,TEMP 96. SEEN AND ASSESSED PATIENT. AWAKE ALERT ORIENTED X4. PATIENT LAYING SUPINE WITH OWN BLANKETS GIVEN BY MOTHER.SKIN WARM AND DRY NOW.DIAPHORESIS STARTED TONIGHT AFTER TAKING SOLUMEDROL POSSIBLY.REASSURANCES PROVIDED ,SINCE PATIENT IS NOT IN ANY DISTRESS WILL INFORM MD IN THE MORNING.WILL KEEP HIM HYDRATED BY PO AND IV.
--- NOTE | 2018-02-10 03:45 | NUR ---
BLOOD SUGAR CHECKED. 151 MG/DL. CUP OF APPLE JUICE AND WATER WITHOUT PROBLEM. WILL MONITOR CLOSELY.
--- NOTE | 2018-02-10 04:55 | NUR ---
mother called for a gown. gail stewart brought a gown. own t shirt soaked with diaphoresis. changed to a hospital gown. patient ambulated to bathroom to urinate and had small loose stool.kept patient dry and clean. offer pain meds mother refuse. asked patient if has pain shook his head no.
--- NOTE | 2018-02-10 05:05 | NUR ---
GARMENT MENDER WAS HERE FEW MINUTES AGO. MOTHER REFUSE LAB DRAW THIS TIME. SAID PATIENT NOT FEELING GOOD HAD BEEN PERSPIRING. PATIENT ALERT ORIENTED X4. TEMP 96.6 BP 117/67 ,HR 67 RR 18 SAT 97%.DRUNK APPLE JUICE WITHOUT PROBLEM. IVF INFUSING WELL.
[2018-02-10] MEDS: POTASSIUM CHLORIDE 10 MEQ in NACL 0.9% 1,000 ML IV SCH ×2 (05:21→16:37)
[2018-02-10] MEDS: metroNIDAZOLE 250 mg/NS 50 ML IV SCH ×3 (05:22→20:59)
--- NOTE | 2018-02-10 05:30 | NUR ---
DIAPHORETIC MODERATELY. OWN CLOTHES CHANGED TO HOSPITAL GOWN WHICH HE AGREED TO DO.OFFERED PAIN MED ,MOTHER SAID HE HAS NO PAIN. ASKED PATIENT IF HAS PAIN,MOTHER ANSWERED HE HAS NO PAIN AND NO MORPHINE.
--- NOTE | 2018-02-10 07:40 | NUR ---
am rounds: patient sleeping during rounds. patient's mother at the bedside. no needs this time. mother wants patient to rest this time.
--- NOTE | 2018-02-10 07:40 | NUR ---
CLOSING: REPORT GIVEN TO AM MIGUEL HERRING. MOTHER STATED LET HIM SLEEP AND NOT PERSPIRING ANY MORE. IVF INFUSING WELL. CALL LIGHT WITHIN REACH. BED IN LOW POSITION.NO ACUTE DISTRESS. NO FURTHER NAUSEA NOR VOMITING THIS SHIFT. NO PAIN MEDS GIVEN EITHER.
[2018-02-10] MEDS ORDERED: methylPREDNISolone SOD SUCC/PF 62.5 MG/ML VIAL IVP SCH (09:00)
[2018-02-10] MEDS: LACTOBACILLUS RHAMNOSUS GG 1 CAP CAPSULE PO SCH ×2 (10:05→20:59)
[2018-02-10] MEDS: VANCOMYCIN HCL 250 MG CAPSULE PO SCH ×4 (10:05→20:59)
--- NOTE | 2018-02-10 10:10 | NUR ---
rn rounding: no nausea and no vomiting. mother at the bedside.
--- NOTE | 2018-02-10 12:00 | NUR ---
meal: advance diet as ordered. tolerated well.
[2018-02-10] MEDS: MESALAMINE 250 MG CAPSULE.SA PO SCH ×3 (13:21→21:00)
--- NOTE | 2018-02-10 14:30 | NUR ---
rn rounds: patient's father at the bedside. no problem.
--- NOTE | 2018-02-10 14:40 | NUR ---
rn rounds: took his meds well. no complained made.
--- NOTE | 2018-02-10 15:20 | NUR ---
Nutrition F/U Admitting Diagnosis Intractable N/V Reviewed Pertinent Medical/Surgical Hx Medical Record Patient Medical History Comment: Pt found w/: Intractable N/V, Possible colitis of unclear etiology, R/O Inflammatory Bowel Dz, H/O Henoch-Schnlein purpura per MD notes. Subjective Information Pt seen resting in bed at time of RD visit. Pt reported that he had been tolerating clear liquid diet well, and was ready to try solid foods. Evidence of lunch tray untouched at bedside. Pt reported that he will eventually try to eat lunch. Pt reported that he is having less blood in diarrhea. RD weighed pt on bedscale: 178.5 lb. Pt reported UBW: [address] encouraged pt to try to gradually increase PO intakes. RD offered Ensure Enlive w/ meals; pt agreeable to vanilla-flavored oral supplement drink. Pt did not have any nutrition-related concerns. Pt is not yet meeting optimal nutritional needs. Current Diet Order/Nutrition Support Soft (low fiber/bland) x0 days Patient/Significant Other Able To Verbalize Education Provided Indicated Pertinent Medications solu-medrol, vancomycin, culturelle, morphine, zofran Pertinent Labs Na 134 L, BUN 5 L, Alb 2.8L, Hgb 12.6 L, Ca 7.7 L Height (Feet) 5 feet Height (Inches) 10.00 inches Weight (Pounds) 180 pounds (02/06/18) Weight (Calculated Kilograms) 81.018923 kilograms Patient Weight 81.647 kg Body Mass Index 25.82 kg/m2 NEW Usual Weight 185 lbs NEW %UBW 97 %IBW 108 [place]/Adjusted Body Weight 166 lb, 75 kg Recent Weight Change Yes - 10 lb wt loss in 1 week (5% severe) per pt Weight Status Overweight Gastrointestinal Symptoms None Last BM 02/10/18 Food Allergies No - per pt Usual Diet At Home liquid diet per pt Skin Integrity Comment: Aram scale: 19; per nursing notes, medial perineal w/ redness/sore d/t diarrhea Current % PO Poor; 38% average PO intakes x6 meals while on liquid diet Estimated Energy Expenditure (kcals/day) 9020-6056 kcal/day (30-35 kcal/kg CBW for maintenance) Estimated Protein Required (g/day) 66-98 g/day (0.8-1.2 g/kg CBW for maintenance) Estimated Fluid Required (l/day) 2.4-2.8 L/day (1 ml/kcal/day for maintenance) Problem/Etiology/Signs/Symptoms Moderate malnutrition related to chronic illness as evidenced by pt's report of 10 lb wt loss, 5% severe unintentional wt loss in 1 week and poor oral intake. *ongoing Inadequate nutritional intake related to GI dysfunction as evidenced by intractable N/V and diarrhea. *improving Expected Outcomes/Goals Monitor advancement of diet and PO intake w/ goal of pt meeting at least 75% of estimated nutritional needs, labs trending WNL, normal GI function, skin integrity. Dietitian Recommendations * Recommend soft (low fiber/bland) diet, Ensure Enlive TID (oral supplement provides an additional 1050 kcal/day and 60 gm protein/day) Follow Up Moderate Risk: F/U in 3-5 days
--- NOTE | 2018-02-10 15:29 | NUR ---
Dietitian Recommendations * Recommend soft (low fiber/bland) diet, Ensure Enlive TID (oral supplement provides an additional 1050 kcal/day and 60 gm protein/day) LP, RD Please refer to Nutrition F/U for details.
[2018-02-10 16:47] LABS: HEMATOCRIT 41.5 % (36-54); HEMOGLOBIN 13.8 g/dL (14.0-18.0); MEAN CORPUSCULAR HEMOGLOBIN 29 pg (27-31); MEAN CORPUSCULAR HGB CONC 33 % (32-36); MEAN CORPUSCULAR VOLUME 87 fL (79.0-98.0); PLATELET COUNT (AUTO) 443 K/uL (130-430); RED BLOOD CELL COUNT(AUTO) 4.78 MIL/uL (4.2-6.2); RED CELL DISTRIBUTION WIDTH 11.6 % (9.0-15.0); WHITE BLOOD COUNT (AUTO) 9.2 K/uL (4.5-11.0)
[2018-02-10 16:59] LABS: CALCIUM 8.3 mg/dL (8.4-11.0); POTASSIUM 3.8 mmol/L (3.5-5.1)
[2018-02-10 17:00] LABS: ALBUMIN 2.1 g/dL (3.4-4.8); CREATININE 0.6 mg/dL (0.55-1.30); TOTAL BILIRUBIN 0.2 mg/dL (0.0-1.0)
[2018-02-10 17:34] LABS: BAND % (MANUAL) 28 % (0-6); BASOPHILS % (MANUAL) 0 % (0-2); EOSINOPHILS % (MANUAL) 0 % (0-7); LYMPHOCYTES % (MANUAL) 8 % (20-46); MONOCYTES % (MANUAL) 9 % (0-11)
--- NOTE | 2018-02-10 18:15 | NUR ---
rn rounds: tolerated dinner well. stable.
--- NOTE | 2018-02-10 19:15 | NUR ---
end of shift: stable. no complained made.
--- NOTE | 2018-02-10 20:00 | NUR ---
Initial Notes Received patient resting in bed, awake, alert, oriented, family at bedside. Patient denies any acute distress at this time. Breathing is even and unlabored. IV site patent/clean/dry. Educated patient regarding use of call light for assistance and fall precautions, patient verbalized understanding. Call light in hand, fall precautions in place. Will continue to monitor.
--- NOTE | 2018-02-10 22:00 | NUR ---
Nursing Notes Patient resting in bed, awake, family at bedside. Patient denies any acute distress or pain at this time. Breathing is even and unlabored. IV site patent/clean/dry. Snacks given per request. Needs addressed. Call light in hand, fall precautions in place.
--- NOTE | 2018-02-11 00:40 | NUR ---
Nursing Notes Patient resting in bed with eyes closed, family at bedside. No acute distress noted, breathing is even and unlabored. IV site patent/clean/dry. Call light in hand, fall precautions in place. Will continue to monitor.
[2018-02-11] MEDS: POTASSIUM CHLORIDE 10 MEQ in NACL 0.9% 1,000 ML IV SCH (00:56)
--- NOTE | 2018-02-11 02:26 | NUR ---
Nursing Notes Patient resting comfortable in bed with eyes closed, family at bedside. No acute distress noted. Breathing is even and unlabored. IV site patent/clean/dry. Fall precautions in place, will continue to monitor.
--- NOTE | 2018-02-11 04:31 | NUR ---
Nursing Notes Patient resting in bed with eyes closed, easily aroused, family at bedside. Patient denies any acute distress or pain at this time. Breathing is even and unlabored. IV patent/clean/dry. Patient denies any needs at this time. Call light in hand, fall precautions in place.
[2018-02-11] MEDS: metroNIDAZOLE 250 mg/NS 50 ML IV SCH (05:04)
--- NOTE | 2018-02-11 06:38 | NUR ---
Closing Notes Patient resting in bed with eyes closed, easily aroused, family at bedside. Patient denies any acute distress or pain at this time. Breathing is even and unlabored. IV site patent/clean/dry, no S/S infection/infiltration noted. Needs addressed throughout shift. Call light in hand, fall precautions in place. Will continue to monitor for changes and safety, and endorse all patient care/needs to oncoming nurse.
--- NOTE | 2018-02-11 07:30 | NUR ---
AM ROUNDS: PATIENT ON THE BED,DR AYALA TALKING TO THE PATIENT AND MOTHER AT THE BEDSIDE. WITH ORDERS TO DC SOLUMEDROL IV AND SHIFT TO PREDNISONE 40MG PO DAILY ,WHEN DC HOME TO CONTINUE FOR 30 DAYS ORDERED. NO COMPLAINED THIS TIME.
--- NOTE | 2018-02-11 07:45 | NUR ---
GI NEW ORDERS: DC SOLUMEDROL IV ,SHIFT TO PREDNISONE 40MG PO DAILY FOR [address] ORDER OF [address] AYALA.
[2018-02-11 08:07] VITALS: BP_SYST 120
[2018-02-11 08:13] LABS: HEPATITIS A AB, IgM Negative (Negative); HEPATITIS B CORE AB, IgM Negative (Negative); HEPATITIS B SURFACE AG Negative (Negative)
[2018-02-11] MEDS: LACTOBACILLUS RHAMNOSUS GG 1 CAP CAPSULE PO SCH (08:28)
[2018-02-11] MEDS: VANCOMYCIN HCL 250 MG CAPSULE PO SCH (08:28)
[2018-02-11] MEDS: MESALAMINE 250 MG CAPSULE.SA PO SCH (08:29)
[2018-02-11] MEDS ORDERED: PREDNISONE 20 MG TABLET PO SCH (09:00)
--- NOTE | 2018-02-11 10:18 | NUR ---
DC ORDER: PATIENT SEEN BY DR FRIEDMAN WITH ORDERS DC HOME.F/U WITH PCP AND GI SPECIALIST IN 1-2 WEEKS.WITH PRESCRIPTION ATTACHED TO CHART.
[2018-02-11] MEDS ORDERED: LACT1CAP57 PO (10:33)
--- NOTE | 2018-02-11 10:35 | NUR ---
RN ROUNDS: RESTING. COMFORTABLE THIS TIME. WAITING FOR HIS FAMILY TO PICK HIM UP.
[2018-02-11] MEDS ORDERED: PRED20TA PO (10:37)
[2018-02-11] MEDS ORDERED: PEN250 PO (10:38)
[2018-02-11 11:54] VITALS: BP_SYST 113
[2018-02-11 12:04] VITALS: BP_SYST 113
--- NOTE | 2018-02-11 12:20 | NUR ---
DC NOTES: TRANSITIONAL CARE DOCUMENTS AND PRESCRIPTIONS GIVEN TO THE PATIENT.VERBALIZED UNDERSTANDING OF INSTRUCTIONS. IV REMOVED,DRY GAUZE APPLIED TO THE SITE,NO BLEEDING NOTED.PERSONAL BELONGINGS COMPLETED AND SEND HOME WITH THE PATIENT. ACCOMPANIED HOME BY HIS FATHER AND SISTER IN STABLE CONDITION.
== END 2018-02-11 12:20 | disposition home or self-care (01) | DRG 720 ==
LOC: SED 07:48 → SMU 10:03
PROVIDERS: ADMIT Internal Medicine; ATTEND Internal Medicine
PROC: 0DBL8ZX Excision of Transverse Colon, Via Natural or Artificial Opening Endoscopic, Diagnostic (ICD-10-PCS; 2018-02-08)
PROC: 0DBN8ZX Excision of Sigmoid Colon, Via Natural or Artificial Opening Endoscopic, Diagnostic (ICD-10-PCS; 2018-02-08)
PROC: 0DBP8ZX Excision of Rectum, Via Natural or Artificial Opening Endoscopic, Diagnostic (ICD-10-PCS; 2018-02-08)
PROC: 0DBB8ZX Excision of Ileum, Via Natural or Artificial Opening Endoscopic, Diagnostic (ICD-10-PCS; 2018-02-08)
PROC: 0DBM8ZX Excision of Descending Colon, Via Natural or Artificial Opening Endoscopic, Diagnostic (ICD-10-PCS; 2018-02-08)
PROC: 0DBK8ZX Excision of Ascending Colon, Via Natural or Artificial Opening Endoscopic, Diagnostic (ICD-10-PCS; principal; 2018-02-08 07:30)
DX: A41.9 Sepsis, unspecified organism (principal); A04.72 Enterocolitis due to Clostridium difficile, not specified as recurrent; E44.0 Moderate protein-calorie malnutrition; K51.00 Ulcerative (chronic) pancolitis without complications; Z86.19 Personal history of other infectious and parasitic diseases
CPT/HCPCS: 36415; 45380; 80048; 80053; 80074; 80307; 81000-TC; 82150-TC; 82272; 82962; 83605; 83615-TC; 83690-TC; 85007; 85025; 85027; 85610-TC; 85651-TC; 85730-TC; 86140; 86480; 87045-TC; 87046; 87177; 87230-TC; 88305; 89055; 96361; 96374; 96375; 99285; C9113; J2175; J2250; J2270; J2405; J2930; J3010; J3480; J3490; J7030; J7512

== ENCOUNTER 2018-04-17 14:42 | Emergency (ER) | payer MEDICAID ==
[~2018-04-17] VITALS: Ht 180.3 cm; Wt 81.6 kg
[~2018-04-17 14:42] MED LIST changes: -HYDR-1189; +LACT1CAP57 PO; +PEN250 PO; +PRED20TA PO
[2018-04-17 14:53] VITALS: BP_SYST 142
[2018-04-17 15:30] VITALS: BP_SYST 135
[2018-04-17] MEDS ORDERED: DIPHENHYDRAMINE HCL 12.5 MG/5 ML UDC PO ONE (15:30)
== END 2018-04-17 15:30 | disposition home or self-care (01) ==
LOC: SED 14:42
DX: B09 Unspecified viral infection characterized by skin and mucous membrane lesions (principal); R03.0 Elevated blood-pressure reading, without diagnosis of hypertension; Z79.899 Other long term (current) drug therapy
CPT/HCPCS: 99282